=== PATIENT | male | born 1950 | race Caucasian/White ===

== ENCOUNTER 2021-11-01 00:20 | Inpatient (IN) | payer OTHER ==
[2021-11-01] VITALS (8 sets, daily range): BP systolic 102–131; BP diastolic 57–65
[~2021-11-01] VITALS: Ht 170.2 cm; Wt 65.8 kg
--- NOTE | 2021-11-01 00:30 | NUR ---
[id number] FROM HOME C/O VOMITTING BLOOD HX OF CIRRHOSIS & VARICIES. PATIENT IS AAOX4. PLACED COMFORTABLY IN BED. CAME WITH IV CANNULA G20 ON LEFT HAND. VITALS CHECKED. ATTACHED TO MONITOR
[2021-11-01] MEDS ORDERED: ONDANSETRON HCL/PF 4 MG/2 ML VIAL ONE (00:39)
[2021-11-01] MEDS ORDERED: PANTOPRAZOLE 40 MG VIAL ONE ×2 (00:39→09:03)
--- NOTE | 2021-11-01 00:41 | NUR ---
CAME WITH IV CANNULA G20 ON LEFT HAND. BLOOD DRAWN AND SENT TO LAB
--- NOTE | 2021-11-01 00:42 | NUR ---
COVID SWAB DONE AND SENT TO LAB
[2021-11-01 00:59] LABS: BASOPHILS % (AUTO) 0.6 % (0.0-2.0); HEMOGLOBIN 7.1 g/dL (13.5-17.5); LYMPHOCYTES # (AUTO) 1.7 K/uL (0.8-4.8); LYMPHOCYTES % (AUTO) 22.4 % (20.0-44.0); MEAN CORPUSCULAR HGB CONC 35 g/dl (31.0-36.0); MEAN CORPUSCULAR VOLUME 88 fL (80-96); MONOCYTES % (AUTO) 13.5 % (2.0-12.0); NEUTROPHILS # (AUTO) 4.2 K/uL (1.8-8.9); NEUTROPHILS % (AUTO) 56.5 % (43.0-81.0); PLATELET COUNT (AUTO) 116 K/uL (150-450); RED BLOOD CELL COUNT(AUTO) 2.32 MIL/uL (4.5-6.0); WHITE BLOOD COUNT (AUTO) 7.5 K/uL (4.3-11.0)
[2021-11-01] MEDS ORDERED: IV NS 0.9% 500 ML BAG IV ONE (01:00)
[2021-11-01] MEDS ORDERED: PANTOPRAZOLE 40 MG VIAL IV ONE (01:00)
[2021-11-01] MEDS ORDERED: ONDANSETRON HCL/PF 4 MG/2 ML VIAL IVP ONE (01:00)
[2021-11-01 01:13] LABS: HEMATOCRIT 20 % (39-51)
[2021-11-01 01:18] LABS: ALANINE AMINOTRANSFERASE 22 U/L (12-78); ALKALINE PHOSPHATASE 61 U/L (46-116); ASPARTATE AMINOTRANSFERASE 36 U/L (15-37); BILIRUBIN,DIRECT 0.4 mg/dL (0.0-0.2); BILIRUBIN,TOTAL 1.3 mg/dL (0.2-1.0); CALCIUM, SERUM 7.7 mg/dL (8.5-10.1); CARBON DIOXIDE 23 mmol/L (21-32); CHLORIDE 106 mmol/L (98-107); GLUCOSE 239 mg/dL (74-106); POTASSIUM 4.2 mmol/L (3.5-5.1); SODIUM SERUM 135 mmol/L (136-145); TOTAL PROTEIN, SERUM 5.5 g/dL (6.4-8.2); UREA NITROGEN, BLOOD 15 mg/dL (7-18)
[2021-11-01 01:31] LABS: ALBUMIN 2.4 g/dL (3.4-5.0)
--- NOTE | 2021-11-01 02:56 | NUR ---
followed up with tara.
--- NOTE | 2021-11-01 03:12 | NUR ---
BLOOD TRANSFUSION INITIATED AT LH 20G AT 75ML/HR. CONSENT FORM SIGNED AND PLACED IN PT CHART AND PRBC VERIFIED BY TWO RNS. V/S ASSESSED PRIOR TO ADMIN AND ALL WNL. PT INFORMED OF S/S OF REACTION AND CALL LIGHT WITHIN REACH.
--- NOTE | 2021-11-01 03:27 | NUR ---
PT TOLERATING TRANSFUSION WELL NO REACTION NOTED AND V/S REMAIN STABLE. RATE INCREASED TO 145ML/HR.
[2021-11-01] MEDS ORDERED: ZOLPIDEM TARTRATE 5 MG TABLET PO PRN (03:30)
[2021-11-01] MEDS ORDERED: ONDANSETRON HCL/PF 4 MG/2 ML VIAL IVP PRN (03:30)
[2021-11-01] MEDS ORDERED: MAG HYDROX/AL HYDROX/SIMETH 30 ML UDC PO PRN (03:30)
[2021-11-01] MEDS ORDERED: MAGNESIUM HYDROXIDE 30 ML UDC PO PRN (03:30)
[2021-11-01] MEDS ORDERED: IV NS 0.9% 1,000 ML IV PRN (03:30)
[2021-11-01] MEDS ORDERED: ACETAMINOPHEN 325 MG TABLET PO PRN (03:30)
[2021-11-01] MEDS ORDERED: Z GUARD REMEDY 4 OZ OINT TP PRN (03:30)
[2021-11-01 04:02] LABS: LIPASE 342 U/L (73-393)
--- NOTE | 2021-11-01 05:11 | NUR ---
BLOOD TRANSFUSION INFUSED WITHOUT COMPLICATION. ALL V/S WNL.
--- NOTE | 2021-11-01 05:40 | NUR ---
ROSIBEL WILLS ([facility])
[2021-11-01] MEDS ORDERED: PANTOPRAZOLE 40 MG VIAL IV SCH (09:00)
[2021-11-01] MEDS ORDERED: NORMAL SALINE FLUSH 10 ML SYR ONE (09:04)
[2021-11-01] MEDS: PANTOPRAZOLE 40 MG VIAL IV SCH ×2 (09:16→21:03)
[2021-11-01] MEDS: IV NS 0.9% 1,000 ML IV PRN (09:20)
[2021-11-01] MEDS ORDERED: DEXTROSE 50%-WATER 50 ML DISP.SYRIN IV PRN (09:30)
--- NOTE | 2021-11-01 10:04 | NUR ---
BED 326
--- NOTE | 2021-11-01 10:07 | NUR ---
REPORT GIVEN TO MART KEBEDE FOR WERNER
--- NOTE | 2021-11-01 10:17 | NUR ---
PT TRANSPORTED TO TELE FLOOR WITH ACLS PROTOCOLS IN PLACE
[2021-11-01 11:11] LABS: HEMOGLOBIN 6.9 g/dL (13.5-17.5)
--- NOTE | 2021-11-01 12:00 | NUR ---
MILL BEAM FITTER NOTES ADMITTED A 71 YO MALE , SLOVENIAN SPEAKING , A/0 X 4 FROM HOME AND C/O OF HEMATEMESIS, ABLE TO MAKE NEEDS KNOWN , ROOM AIR AND NO SOB OR DISTRESS NOTED V/S TAKEN AND RECORDED , BODY ASSESSMENT DONE , SKIN IS INTACT AND NOTED WITH L HAND SL G#20 AND STARTED WITH NS @50CC PER HOUR, WITH ORDER FOR NPO , CONTINENET WITH BOWEL AND BLADDER WITH BRP , ORIENTED PATIENT TO ROOM SET UP AND SHOW PATIENT TO USE CALL LIGHT , NO C/O OF PAIN AND DISCOMFORT NOTED , ON EXTERNAL DIRECTOR INDEX WITH CURRENT READING OF SR AND HR 68 , NO CARDIAC DISTRESS NOTED , FALL AND SAFETY MEASURES IN PLACED , BED ALARM ON , BED IN LOW AND LOCKED POSITION , CALL LIGHT AND TABLE WITHIN EASY REACH , SIDE RAILS UPX2 , WILL CONTINUE TO MONITOR
[2021-11-01] MEDS: BLOOD SUGAR DIAGNOSTIC 1 EACH STRIP IN SCH ×3 (14:13→23:30)
--- NOTE | 2021-11-01 14:44 | NUR ---
RN NOTE PATIENT ACCU CHECK DONE GLUCOSE 133 AND HAVEN'T EAT AND REFUSED INSULIN
--- NOTE | 2021-11-01 18:00 | NUR ---
RN NOTE PATIENT IS RECEIVING 1 UNIT OF BLOOD, V/S TAKEN, STABLE AND RECORDED. PATIENT IS COMFORTABLE IN ROOM, WITH NO SIGNS OF DISTRESS, NO REACTION AT THE MOMENT. WILL CONTINUE TO MONITOR.
--- NOTE | 2021-11-01 18:50 | NUR ---
RN CLOSING NOTE PATIENT AWAKE IN BED RESTING. A/O X4. NO S/S OF PAIN NOTED AT THIS TIME. ON ROOM AIR, NO DISTRESS OR SHORTNESS OF BREATH NOTED. IV ACCESS WILL MIDLINE, INTACT, PATENT AND FLUSHING WELL. PATIENT ON EXTERNAL FITTING ROOM ATTENDANT WITH CURRENT READING OF SR AND HR OF 79, NO CARDIAC DISTRESS NOTED. FALL AND SAFETY MEASURES IN PLACE, BED ALARM ON, BED IN LOW AND LOCK POSITION, CALL LIGHT AND TABLE WITHIN EASY REACH, SIDE RAILS UP X2. WILL ENDORSE TO BOX ATTACHER.
[2021-11-01] MEDS: INSULIN REGULAR, HUMAN 100 UNIT/ML 3 ML VIAL SQ PRN ×2 (19:01→23:31)
--- NOTE | 2021-11-01 19:45 | NUR ---
WINDOW TINTER OPENING NOTE RECEIVED PATIENT AWAKE IN BED. A/O X4 AND ICELANDIC SPEAKING. PT STABLE ON ROOM AIR. NO SOB OR S/S OF RESPIRATORY DISTRESS. BREATHING EVEN AND UNLABORED. ON EXTERNAL LINE ERECTOR READING SR 79 BPM. IV ACCESS WILL MIDLINE, INTACT AND PATENT, RUNNING I BAG PRBC AT THIS TIME. SAFETY PRECAUTIONS IN PLACE. BED IN LOWEST LOCKED POSITION, HOB ELEVATED, SIDE RAILS UP X2, AND CALL LIGHT AND TABLE WITHIN REACH. ALL NEEDS MET AT THIS TIME.
[2021-11-01 23:21] LABS: HEMOGLOBIN 7.5 g/dL (13.5-17.5)
[2021-11-02] VITALS (8 sets, daily range): BP systolic 97–125; BP diastolic 53–65
[2021-11-02] MEDS: BLOOD SUGAR DIAGNOSTIC 1 EACH STRIP IN SCH ×3 (05:55→17:33)
[2021-11-02 05:57] LABS: BASOPHILS % (AUTO) 0.2 % (0.0-2.0); EOSINOPHILS % (AUTO) 3.3 % (0.0-6.0); LYMPHOCYTES # (AUTO) 1.1 K/uL (0.8-4.8); LYMPHOCYTES % (AUTO) 14.6 % (20.0-44.0); MEAN CORPUSCULAR HGB CONC 34 g/dl (31.0-36.0); MEAN CORPUSCULAR VOLUME 88 fL (80-96); MONOCYTES # (AUTO) 0.9 K/uL (0.1-1.30); MONOCYTES % (AUTO) 11.6 % (2.0-12.0); NEUTROPHILS # (AUTO) 5.2 K/uL (1.8-8.9); NEUTROPHILS % (AUTO) 70.3 % (43.0-81.0); PLATELET COUNT (AUTO) 74 K/uL (150-450); RED BLOOD CELL COUNT(AUTO) 2.28 MIL/uL (4.5-6.0); WHITE BLOOD COUNT (AUTO) 7.3 K/uL (4.3-11.0)
[2021-11-02] MEDS: INSULIN REGULAR, HUMAN 100 UNIT/ML 3 ML VIAL SQ PRN ×2 (05:57→12:49)
[2021-11-02 06:11] LABS: HEMATOCRIT 20 % (39-51)
[2021-11-02 06:14] LABS: HEMOGLOBIN 6.9 g/dL (13.5-17.5)
[2021-11-02 06:58] LABS: ALBUMIN 2.3 g/dL (3.4-5.0); BILIRUBIN,TOTAL 2.5 mg/dL (0.2-1.0); CALCIUM, SERUM 7.4 mg/dL (8.5-10.1); MAGNESIUM 2.1 mg/dL (1.8-2.4); PHOSPHORUS 2.5 mg/dL (2.5-4.9); POTASSIUM 3.9 mmol/L (3.5-5.1)
--- NOTE | 2021-11-02 07:02 | NUR ---
FIELD SUPERINTENDENT CLOSING NOTE PATIENT AWAKE IN BED. A/O X4 AND ALBANIAN SPEAKING. PT STABLE ON ROOM AIR. NO SOB OR S/S OF RESPIRATORY DISTRESS. BREATHING EVEN AND UNLABORED. ON EXTERNAL PRINCIPAL CONSULTING ENGINEER READING SR 65 BPM. IV ACCESS WILL MIDLINE, INTACT AND PATENT, RUNNING NS @ 50 ML/HR. PT HGB 6.9 THIS MORNING. WIRE WEB WORKER FERNANDO INFORMED WITH NEW ORDERS NOTED AND CARRIED OUT. ALL DUE MEDS GIVEN ORDERED. SAFETY PRECAUTIONS IN PLACE AT ALL TIMES. BED IN LOWEST LOCKED POSITION, HOB ELEVATED, SIDE RAILS UP X2, AND CALL LIGHT AND TABLE WITHIN REACH. ALL NEEDS MET AT THIS TIME AND WILL ENDORSE TO ONCOMING NURSE FOR WERNER.
[2021-11-02 08:15] LABS: EOSINOPHILS % (MANUAL) 2 % (0-4); LYMPHOCYTES % (MANUAL) 16 % (16-48); MONOCYTES % (MANUAL) 8 % (0-11.0); NEUTROPHILS % (MANUAL) 74 (42-76)
[2021-11-02] MEDS: CEFTRIAXONE 1 G in IV D5W 50 ML IV SCH (08:15)
[2021-11-02 08:16] LABS: BASOPHILS % (MANUAL) 0 % (0.0-2.0)
--- NOTE | 2021-11-02 08:27 | NUR ---
RUBBER EXTRUSION MACHINE OPERATOR OPENING NOTE Patient in bed, awake. A/O x 4, Citizen Of [place] speaking. On room air, breathing evenly and unlabored. No SOB or s/s of distress noted. IV access on Left hand #20 infusing NS at 50 ml/hr. On tele monitoring ahowing A-pacing, HR 61. Denies any pain or discomfort at this time. Safety precautions in place: bed in low, locked position; siderails up x 2; call light within reach. Will continue to monitor.
[2021-11-02] MEDS: PANTOPRAZOLE 40 MG VIAL IV SCH ×2 (08:45→21:35)
[2021-11-02] MEDS: IV NS 0.9% 1,000 ML IV PRN (09:26)
--- NOTE | 2021-11-02 09:36 | NUR ---
RN NOTE Patient had BM this AM, black tarry stool still noted. Will continue to monitor.
[2021-11-02] MEDS ORDERED: PROP10TA68 PO (10:51)
[2021-11-02] MEDS ORDERED: LEVO50TA8 PO (10:51)
[2021-11-02] MEDS ORDERED: OMEP-99 PO (10:51)
[2021-11-02] MEDS: OCTREOTIDE 500 MCG in IV NS 0.9% 99 ML IV PRN ×2 (10:52→19:30)
[2021-11-02] MEDS ORDERED: LACT10SO3 PO (10:58)
--- NOTE | 2021-11-02 14:06 | NUR ---
RN NOTE Received order for 1 unit PRBC blood transfusion. Consent in the chart dated 11/01/21. Picked up blood at the blood bank. Blood verified by 2 RNs. VS before blood transfusion as follows: BP 107/62, HR 68, RR 18, Temp 97.8, SPO2 100%. Blood transfusion started. Will continue to monitor patient.
--- NOTE | 2021-11-02 14:21 | NUR ---
RN NOTE Patient currently on blood transfusion, no allergic reactions noted. VS as follows: BP 101/57, HR 64, RR 18, Temp 97.8. SPO2 100%. Patient remains stable. will continue to monitor.
--- NOTE | 2021-11-02 14:51 | NUR ---
RN NOTE Blood transfusion ongoing, no allergic reactions noted. VS as follows: BP 97/53, HR 67, RR 19, Temp 97.4. SPO2 100%. Patient remains stable, denies any pain or discomfort. Will continue to monitor.
--- NOTE | 2021-11-02 15:51 | NUR ---
RN NOTE Blood transfusion still ongoing, no allergic reactions noted. VS as follows: BP 121/65, HR 90, RR 18, Temp 97.6. SPO2 100%. Patient remains stable, denies any pain or discomfort. Will continue to monitor.
--- NOTE | 2021-11-02 17:29 | NUR ---
RN NOTE Blood transfusion ended. No allergic reactions noted throughout the transfusion. Patient remains stable with VS: BP 115/59; HR 65; RR 18; Temp 98.3; SPO2 99%. Will continue to monitor.
--- NOTE | 2021-11-02 19:25 | NUR ---
METEOROLOGY TEACHER OPENING NOTE RECEIVED PATIENT RESTING IN BED; AWAKE, ALERT AND ORIENTED X4. BREATHING EVEN AND NONLABORED. ON ROOM AIR; TOLERATING WELL. ON TELEMETRY MONITORING WITH CURRENT READING OF SINUS RHYTHM HR-71 BPM. NOT IN ANY FORM OF RESPIRATORY DISTRESS. HUNGARIAN SPEAKING UNDERSTANDS MAORI. DENIES ANY PAIN OR DISCOMFORT OF THIS TIME. IV ACCESS ON LEFT HAND INFUSING WITH NS REGULATED @ 50 ML/HR; PATENT, INTACT AND FLUSHES WELL; ANOTHER IV ACCESS ON LEFT ANTECUBITAL G#20; PATENT, INTACT AND FLUSHES WELL. ABLE TO MAKE NEEDS KNOWN. SAFETY PRECAUTIONS IMPLEMENTED: CALL LIGHT AND TABLE WITHIN REACH, SIDE RAILS UP X2, BED IN LOWEST LOCKED POSITION. WILL CONTINUE TO MONITOR
--- NOTE | 2021-11-02 19:46 | NUR ---
NUT CULLER CLOSING NOTE Patient in bed, resting comfortably. A/O x 4, Greek speaking. Stable on room air, breathing evenly and unlabored. No SOB or s/s of distress noted. IV access on Left hand #20 infusing NS at 50 ml/hr and LAC #20 infusing Sandostatin @ 10 ml/hr. On tele monitoring Showing A-pacing, HR on the 60's. Denies any pain or discomfort at this time. No reactions from blood transfusion noted. Safety precautions in place: bed in low, locked position; siderails up x 2; call light within reach. Will endorse to carcass washer nurse for WERNER. Addendum: 11/02/21 at 1953 by MARQUITA HAWLEY RN ADD: Due meds given. All needs attended to.
[2021-11-03] VITALS (10 sets, daily range): BP systolic 98–156; BP diastolic 50–87
--- NOTE | 2021-11-03 00:12 | NUR ---
EXERCISE PHYSIOLOGY PROFESSOR NOTE BLOOD SUGAR CHECKED - 154 MG/DL. 2 UNITS OF REGULAR INSULIN GIVEN SQ PER SLIDING SCALE; WILL CONTINUE TO MONITOR
[2021-11-03] MEDS: BLOOD SUGAR DIAGNOSTIC 1 EACH STRIP IN SCH ×4 (00:14→18:04)
[2021-11-03] MEDS: INSULIN REGULAR, HUMAN 100 UNIT/ML 3 ML VIAL SQ PRN (00:22)
--- NOTE | 2021-11-03 06:01 | NUR ---
GELATIN MAKER UTILITY NOTE BLOOD SUGAR CHECKED - 121 MG/DL; NO INSULIN COVERAGE GIVEN.
[2021-11-03] MEDS: OCTREOTIDE 500 MCG in IV NS 0.9% 99 ML IV PRN ×3 (06:21→23:42)
[2021-11-03 06:43] LABS: BASOPHILS % (AUTO) 0.5 % (0.0-2.0); EOSINOPHILS % (AUTO) 4.3 % (0.0-6.0); HEMATOCRIT 22 % (39-51); HEMOGLOBIN 7.4 g/dL (13.5-17.5); LYMPHOCYTES # (AUTO) 0.8 K/uL (0.8-4.8); LYMPHOCYTES % (AUTO) 16.5 % (20.0-44.0); MEAN CORPUSCULAR HGB CONC 34 g/dl (31.0-36.0); MEAN CORPUSCULAR VOLUME 89 fL (80-96); MONOCYTES # (AUTO) 0.6 K/uL (0.1-1.30); MONOCYTES % (AUTO) 12.9 % (2.0-12.0); NEUTROPHILS % (AUTO) 65.8 % (43.0-81.0); PLATELET COUNT (AUTO) 65 K/uL (150-450); RED BLOOD CELL COUNT(AUTO) 2.43 MIL/uL (4.5-6.0); WHITE BLOOD COUNT (AUTO) 4.6 K/uL (4.3-11.0)
--- NOTE | 2021-11-03 07:05 | NUR ---
QUALITY INTERNSHIP CLOSING NOTE PATIENT RESTING IN BED; AWAKE, A/O X4. BREATHING EVENLY AND NONLABORED. STABLE ON ROOM AIR. ON TELEMETRY MONITORING WITH CURRENT READING OF SINUS RHYTHM HR-73 BPM. NO SOB NOTED. PANAMANIAN SPEAKING UNDERSTANDS LAO. NO COMPLAINTS OF PAIN OR DISCOMFORT OF THIS TIME. IV ACCESS ON LEFT HAND INFUSING WITH NS REGULATED @ 50 ML/HR; PATENT, INTACT AND FLUSHES WELL; ANOTHER IV ACCESS ON LEFT ANTECUBITAL G#20; PATENT, INTACT INFUSING WITH SANDOSTATIN REGULATED @ 10ML/HR; FLUSHES WELL. NEEDS ATTENDED TO. SAFETY PRECAUTIONS IN PLACE: CALL LIGHT AND TABLE WITHIN REACH, SIDE RAILS UP X2, BED IN LOWEST LOCKED POSITION. ENDORSED TO MORNING SHIFT FOR WERNER.
[2021-11-03 07:25] LABS: ALBUMIN 2.2 g/dL (3.4-5.0); CALCIUM, SERUM 7.3 mg/dL (8.5-10.1); CREATININE 1.2 mg/dL (0.6-1.3); MAGNESIUM 2.1 mg/dL (1.8-2.4); PHOSPHORUS 2.7 mg/dL (2.5-4.9)
[2021-11-03] MEDS: CEFTRIAXONE 1 G in IV D5W 50 ML IV SCH (08:27)
[2021-11-03] MEDS: PANTOPRAZOLE 40 MG VIAL IV SCH (08:28)
--- NOTE | 2021-11-03 12:00 | NUR ---
RN NOTES ALL CONSENTS OBTAINED FOR EGD
--- NOTE | 2021-11-03 12:45 | NUR ---
RN NOTES PATIENT TAKEN DOWN TO OR FOR PROCEDURE
[2021-11-03] MEDS ORDERED: PROPOFOL 100 ML ONE (13:19)
--- NOTE | 2021-11-03 13:31 | NUR ---
BATTER DEPOSITOR OPENING NOTES PATIENT RESTING IN BED; AWAKE, A/O X4. BREATHING EVEN AND UNLABORED ON RA. ON ATTENDING PSYCHIATRIST WITH CURRENT READING OF SINUS RHYTHM HR 70 BPM. NO COMPLAINTS OF PAIN OR DISCOMFORT OF THIS TIME. IV ACCESS ON LEFT HAND INFUSING WITH NS REGULATED @ 50 ML/HR; PATENT, INTACT AND FLUSHES WELL; ANOTHER IV ACCESS ON LEFT ANTECUBITAL G#20; PATENT, INTACT INFUSING WITH SANDOSTATIN REGULATED @ 10ML/HR. SAFETY PRECAUTIONS IN PLACE: CALL LIGHT AND TABLE WITHIN REACH, SIDE RAILS UP X2, BED IN LOWEST LOCKED POSITION. WILL CONTINUE TO MONITOR Addendum: 11/03/21 at 1338 by GLENYS DOWNS RN ABOVE NOTE FOR 0710
--- NOTE | 2021-11-03 14:30 | NUR ---
Admit to ICU from [facility] s/p EGD and "Banding" . Will follow up procedure note once dictated. Pt VSS upon arrival to ICU. Placed on EKG monitoring as ordered for close observation. will foloow up post op orders. PTt AAOx3 no distress noted. Pt primarily bulgarian speaking, but understands some spanish. Will follow up post op orders
[2021-11-03] MEDS: IV NS 0.9% 1,000 ML IV PRN (15:53)
--- NOTE | 2021-11-03 19:05 | NUR ---
RN OPENING NOTES RECEIVED PATIENT ON BED, A/O X 3, MONGOLIAN SPEAKING, ABLE TO FOLLOW COMMAND, ON ROOM AIR SATING AT 94%. RESPIRATORY EVEN AND UNLABORED, NO SOB NOTED, NO S/S OF DISTRESS NOTED. PATIENT WITH LAC #20 AND LEFT HAND # 20 PERIPHERAL LINE, FLUSHED WITH NS, NO S/S OF INFILTRATION NOTED AT SITE. WITH IVF OF NS 1L @ 50 ML/HR AND SANDOSTATIN DRIP @ 25MCG/HR. ALL SAFETY MEASURE PROVIDED. BED IN LOWEST POSITION, LOCKED. CONTINUE TO MONITOR
[2021-11-04] VITALS (17 sets, daily range): BP systolic 107–132; BP diastolic 44–69
[2021-11-04] MEDS: BLOOD SUGAR DIAGNOSTIC 1 EACH STRIP IN SCH ×5 (00:54→23:44)
--- NOTE | 2021-11-04 00:54 | NUR ---
RN NOTES BLOOD SUGAR 125 mg/dL, NO INSULIN COVERAGE PER SLIDING SCALE. NO S/S OF HYPOGLYCEMIA NOTED.
[2021-11-04] MEDS: INSULIN REGULAR, HUMAN 100 UNIT/ML 3 ML VIAL SQ PRN ×3 (00:55→23:45)
--- NOTE | 2021-11-04 06:17 | NUR ---
RN NOTES BLOOD SUGAR 115 mg/dL, NO INSULIN COVERAGE PER SLIDING SCALE. NO S/S OF HYPOGLYCEMIA NOTED.
[2021-11-04] MEDS: CEFTRIAXONE 1 G in IV D5W 50 ML IV SCH (07:41)
--- NOTE | 2021-11-04 07:55 | NUR ---
RN Notes: No Acute events overnight. VSS. afebrile. Cont close ICU observation. s/p EGD and banding. No hematemesis noted. Will follow up am labs result. Monitor H/H closely and Replete electrolytes as needed. BS WNL, No hypoglycemic episode noted. Currently on CLD. Remains on Octreotide drip and PPI as ordered. Cont plan of care.
[2021-11-04 08:48] LABS: BASOPHILS % (AUTO) 0.4 % (0.0-2.0); EOSINOPHILS % (AUTO) 6.9 % (0.0-6.0); HEMATOCRIT 24 % (39-51); HEMOGLOBIN 7.9 g/dL (13.5-17.5); LYMPHOCYTES # (AUTO) 0.7 K/uL (0.8-4.8); LYMPHOCYTES % (AUTO) 16.2 % (20.0-44.0); MEAN CORPUSCULAR HGB CONC 33 g/dl (31.0-36.0); MEAN CORPUSCULAR VOLUME 89 fL (80-96); MONOCYTES # (AUTO) 0.5 K/uL (0.1-1.30); MONOCYTES % (AUTO) 11.7 % (2.0-12.0); NEUTROPHILS # (AUTO) 2.9 K/uL (1.8-8.9); NEUTROPHILS % (AUTO) 64.8 % (43.0-81.0); PLATELET COUNT (AUTO) 68 K/uL (150-450); RED BLOOD CELL COUNT(AUTO) 2.67 MIL/uL (4.5-6.0); WHITE BLOOD COUNT (AUTO) 4.4 K/uL (4.3-11.0)
[2021-11-04] MEDS: PANTOPRAZOLE 40 MG VIAL IV SCH (09:15)
[2021-11-04 09:17] LABS: ALBUMIN 2.4 g/dL (3.4-5.0); BILIRUBIN,TOTAL 1.9 mg/dL (0.2-1.0); CALCIUM, SERUM 7.3 mg/dL (8.5-10.1); CREATININE 1.1 mg/dL (0.6-1.3); POTASSIUM 3.8 mmol/L (3.5-5.1); TOTAL PROTEIN, SERUM 5.5 g/dL (6.4-8.2)
--- NOTE | 2021-11-04 10:48 | NUR ---
RN Note: Disclosure of Health Information. Faxed to [facility] medical records dept patient signed disclosure for release of health information as requested by MD. placed "faxed" forms in chart
[2021-11-04 12:27] LABS: BASOPHILS % (MANUAL) 0 % (0.0-2.0); EOSINOPHILS % (MANUAL) 3 % (0-4); LYMPHOCYTES % (MANUAL) 19 % (16-48); MONOCYTES % (MANUAL) 9 % (0-11.0); NEUTROPHILS % (MANUAL) 69 (42-76)
[2021-11-04] MEDS: IV NS 0.9% 1,000 ML IV PRN (12:37)
--- NOTE | 2021-11-04 15:15 | NUR ---
RN HOSPITAL NOTES RECEIVED PATIENT FROM ICU VIA GURNEY AT 1513 PM. PATIENT IS ALERT AND ORIENTED TIMES 3. NO PAIN NOTED. NO SOB NOTES. NO DISTRESS NOTED. ON TELE MONITOR READING SR. IV ACCESS LAC G # 20 AND LEFT HAND G # 20 INTACT AND PATENT. RUNNING NS AT 50 ML/HR AND SANDOSTATIN 25 ML/HR. ABLE TO MAKE NEEDS KNOWN IN MACEDONIAN LANGUAGE. NO DISTRESS NOTED. CONTINENT OF BOWEL AND BLADDER. NO BLEEDING NOTED. ALL SAFETY MEASURES IN PLACE. BED LOCKED IN THE LOWEST POSITION. CALL LIGHT AND TABLE IN EASY REACH. SIDE RAILS UP TIMES 2. OVERALL SKIN INTACT. DELIO AHUMADA GAVE REPORT AT THE BEDSIDE. WILL CONTINUE TO MONITOR.
--- NOTE | 2021-11-04 19:02 | NUR ---
CANNING MACHINE OPERATOR CLOSING NOTES PATIENT IS AWAKE AND ALERT AND ORIENTED TIMES 3. NO PAIN NOTED. NO SOB NOTES. NO DISTRESS NOTED. ON TELE MONITOR READING SR. IV ACCESS LAC G # 20 AND LEFT HAND G # 20 INTACT AND PATENT. RUNNING NS AT 50 ML/HR AND SANDOSTATIN 25 ML/HR. ABLE TO MAKE NEEDS KNOWN IN [place] LANGUAGE. NO DISTRESS NOTED. CONTINENT OF BOWEL AND BLADDER. NO BLEEDING NOTED. ALL SAFETY MEASURES IN PLACE. BED LOCKED IN THE LOWEST POSITION. CALL LIGHT AND TABLE IN EASY REACH. SIDE RAILS UP TIMES 2. OVERALL SKIN INTACT. DUE MEDS GIVEN ORDERED. WILL ENDORSE FOR WERNER.
--- NOTE | 2021-11-04 19:43 | NUR ---
ACCELERATOR TECHNICIAN OPENING NOTES PATIENT IS AWAKE AND ALERT AND ORIENTED TIMES 3. NO PAIN NOTED. NO SOB NOTES. NO DISTRESS NOTED. ON TELE MONITOR READING SR. IV ACCESS LAC G # 20 AND LEFT HAND G # 20 INTACT AND PATENT. RUNNING NS AT 50 ML/HR AND SANDOSTATIN 25 ML/HR. ABLE TO MAKE NEEDS KNOWN IN [place]GY[place] LANGUAGE. NO DISTRESS NOTED. CONTINENT OF BOWEL AND BLADDER. NO BLEEDING NOTED. ALL SAFETY MEASURES IN PLACE. BED LOCKED IN THE LOWEST POSITION. CALL LIGHT AND TABLE IN EASY REACH. SIDE RAILS UP TIMES 2. OVERALL SKIN INTACT. WILL CONTINUE TO MONITOR.
[2021-11-04] MEDS: OCTREOTIDE 500 MCG in IV NS 0.9% 99 ML IV PRN (21:12)
[2021-11-05 00:46] VITALS: BP 141/73
[2021-11-05 05:13] VITALS: BP 126/61
[2021-11-05] MEDS: INSULIN REGULAR, HUMAN 100 UNIT/ML 3 ML VIAL SQ PRN ×2 (06:08→12:56)
[2021-11-05] MEDS: BLOOD SUGAR DIAGNOSTIC 1 EACH STRIP IN SCH ×2 (06:08→12:41)
[2021-11-05 06:40] LABS: BASOPHILS % (AUTO) 0.4 % (0.0-2.0); EOSINOPHILS % (AUTO) 7.2 % (0.0-6.0); HEMATOCRIT 22 % (39-51); HEMOGLOBIN 7.6 g/dL (13.5-17.5); LYMPHOCYTES # (AUTO) 0.6 K/uL (0.8-4.8); LYMPHOCYTES % (AUTO) 15.3 % (20.0-44.0); MEAN CORPUSCULAR HGB CONC 34 g/dl (31.0-36.0); MEAN CORPUSCULAR VOLUME 87 fL (80-96); MONOCYTES # (AUTO) 0.5 K/uL (0.1-1.30); NEUTROPHILS # (AUTO) 2.4 K/uL (1.8-8.9); NEUTROPHILS % (AUTO) 64.1 % (43.0-81.0); PLATELET COUNT (AUTO) 67 K/uL (150-450); RED BLOOD CELL COUNT(AUTO) 2.56 MIL/uL (4.5-6.0); WHITE BLOOD COUNT (AUTO) 3.8 K/uL (4.3-11.0)
--- NOTE | 2021-11-05 06:55 | NUR ---
ASSISTANT PROFESSOR OF ART CLOSING NOTES PATIENT IS AWAKE AND ALERT AND ORIENTED TIMES X3. NO PAIN NOTED. NO SOB NOTES. NO DISTRESS NOTED. ON TELE MONITOR READING SR. IV ACCESS LAC G# 20 AND LEFT HAND G# 20 INTACT AND PATENT. RUNNING NS AT 50 ML/HR AND SANDOSTATIN 10ML/HR. ABLE TO MAKE NEEDS KNOWN IN HONDURAN LANGUAGE. NO DISTRESS NOTED. CONTINENT OF BOWEL AND BLADDER. NO BLEEDING NOTED. ALL SAFETY MEASURES IN PLACE. BED LOCKED IN THE LOWEST POSITION. CALL LIGHT AND TABLE IN EASY REACH. SIDE RAILS UP TIMES 2. OVERALL SKIN INTACT. WILL ENDORSE CARE TO DAY SHIFT NURSE.
[2021-11-05 07:15] LABS: CALCIUM, SERUM 7.6 mg/dL (8.5-10.1); CREATININE 1.1 mg/dL (0.6-1.3); PHOSPHORUS 2.6 mg/dL (2.5-4.9); POTASSIUM 3.8 mmol/L (3.5-5.1)
--- NOTE | 2021-11-05 07:20 | NUR ---
RECEIVED PATIENT ON BED, A/O X 3, ABLE TO FOLLOW COMMAND, ON ROOM AIR SATING AT 99%. RESPIRATORY EVEN AND UNLABORED, NO SOB NOTED, NO S/S OF DISTRESS NOTED. PATIENT WITH LAC #20 AND LEFT HAND # 20 PERIPHERAL LINE, FLUSHED WITH NS, NO S/S OF INFILTRATION NOTED AT SITE. WITH IVF OF NS 1L @ 50 ML/HR AND SANDOSTATIN DRIP @ 25MCG/HR. ALL SAFETY MEASURE PROVIDED. BED IN LOWEST POSITION, LOCKED. CONTINUE TO MONITOR
[2021-11-05 08:00] VITALS: BP 123/65
[2021-11-05] MEDS: CEFTRIAXONE 1 G in IV D5W 50 ML IV SCH (08:59)
[2021-11-05] MEDS: PANTOPRAZOLE 40 MG VIAL IV SCH (09:00)
[2021-11-05 09:29] LABS: BASOPHILS % (MANUAL) 0 % (0.0-2.0); EOSINOPHILS % (MANUAL) 2 % (0-4); LYMPHOCYTES % (MANUAL) 16 % (16-48); MONOCYTES % (MANUAL) 12 % (0-11.0); NEUTROPHILS % (MANUAL) 70 (42-76)
--- NOTE | 2021-11-05 15:17 | NUR ---
RN NOTE PATIENT IS ALERT , ORIENTED TIMES 4 , STABLE ,M TO SOB , NO PAIN.ORDER TO DISCHARGE PATIENT RECEIVED.INSTRUCTIONS PROVIDED TO FALLOW UP WITH APPOINTMENT AT [facility] PROVIDED TO THE PATIENT VERBALLY AND IN [place] IN [place] AND [place].PATIENT VERBALIZED UNDERSTANDING.AND SIGHNED THE DISCHARGE PAPER.
== END 2021-11-05 15:30 | disposition home or self-care (01) | DRG 432 ==
LOC: ER 00:25 → TRANSITION 04:05 → TELE 10:03 → ICU 11-03 14:10 → TELE 11-04 15:16 → MED 11-05 10:18
PROVIDERS: ADMIT Nurse Practitioner Acute Care; ATTEND Registered Nurse
PROC: 30233N1 Transfusion of Nonautologous Red Blood Cells into Peripheral Vein, Percutaneous Approach (ICD-10-PCS; principal; 2021-11-01)
PROC: 06L38CZ Occlusion of Esophageal Vein with Extraluminal Device, Via Natural or Artificial Opening Endoscopic (ICD-10-PCS; 2021-11-03)
DX: K74.60 Unspecified cirrhosis of liver (principal); I85.11 Secondary esophageal varices with bleeding; D62 Acute posthemorrhagic anemia; K76.6 Portal hypertension; N20.2 Calculus of kidney with calculus of ureter; Z20.822 Contact with and (suspected) exposure to COVID-19; R73.03 Prediabetes
CPT/HCPCS: 36415; 80048-TC; 80053-TC; 80076-TC; 82962-TC; 83690-TC; 83735-TC; 84100-TC; 84484-TC; 85025-TC; 85027-TC; 85730-TC; 86850-TC; 87081-TC; A4216; C9113; C9803; G0378; J0330; J0696; J1815; J2354; J2405; J2704; J3490; J7030; J7040; J7050; J7060; P9016